=== PATIENT | female | born 1935 | race American Indian/Alaskan Native ===

== ENCOUNTER 2018-12-31 09:27 | Inpatient (IN) | payer OTHER, BC ==
--- NOTE | 2018-12-31 09:38 | PDOC ---
History of Present Illness - General Chief Complaint: Pain, Acute Stated Complaint: EPIGASTRIC PAIN Time Seen by Provider: 12/31/18 09:31 History Source: Patient Exam Limitations: No Limitations - History of Present Illness Initial Comments: 12/31/18 09:39 Ms. Givens is an 83 yo F with a h/o HTN, HLD who presents to the ER via EMS due to epigastric pain Pt awoke in her usual state of health this morning She had an egg white omelette with mushrooms, onions and peppers (no oil or cheese) for breakfast at approximately 6 am (typically she has oatmeal) After eating, she noted epigastric pain In the past when she has had this, she would typically take Chamomile tea for her epigastric pain and it goes away Today, her symptoms have persisted which prompted her presentation to the ER Pt reports that her pain is sharp, no radiation to the arm/jaw/back, pain is 3/ 10, constant No diaphoresis or dizziness No nausea, vomiting, diarrhea, nml bm this morning She was supposed to go to the gym this morning (per her routine - elliptical work out + household personal assistant) She typically has no chest pain with exertion. She is followed by Dr Berman ( Cardiology) who was supposed to see her two weeks ago but appointment was cancelled. She denies prior SD. She denies prior history of ulcer, no prior upper endoscopy PMH: HTN, HLD PSH: Parathyroid adenoma removal, Breast biopsy Meds: please see MAR ALL: NKDA Social: Denies tobacco use (was exposed to 2nd hand smoke), denies etoh use, denies drug use FH: non contributory ROS: GENERAL/CONSTITUTIONAL: No: fever, chills, weakness, loss of appetite. HEAD, EYES, EARS, NOSE AND THROAT: No: change in vision, ear pain, discharge, sore throat, throat swelling. CARDIOVASCULAR: Yes: epigastric pain No: chest pain, lightheadedness, palpitations, syncope RESPIRATORY: No: cough, shortness of breath, wheezing GASTROINTESTINAL: Yes: epigastric pain No: nausea, vomiting, diarrhea, abdominal cramping GENITOURINARY: No: dysuria, hematuria, frequency, urgency MUSCULOSKELETAL: No: back pain, neck pain SKIN: No: rash or easy bruising. NEUROLOGIC: No: headache, vertigo, paresthesias, weakness ENDOCRINE: No: unexplained weight gain or loss HEMATOLOGIC/LYMPHATIC: No: anemia, easy bleeding PE: GENERAL: The patient is in no acute distress. HEAD: Normal EYES: PERRLA, EOMI, sclera anicteric, conjunctiva clear. ENT: Ears normal, nares patent, oropharynx clear without exudates. Moist mucous membranes. NECK: Normal range of motion, supple without JVD LUNGS: Breath sounds equal, clear to auscultation bilaterally. No wheezes, and no crackles. HEART:Regular rate and rhythm, normal S1 and S2 without murmur, rub or gallop. ABDOMEN: Soft, nontender, normoactive bowel sounds. Absolutely no guarding, no rebound. EXTREMITIES: Normal range of motion, no edema. NEUROLOGICAL: Cranial nerves II through XII grossly intact. Normal speech. No focal neurological deficits. MUSCULOSKELETAL: Back non-tender to palpation, no CVA tenderness SKIN: Warm, Dry, normal turgor, no rashes or lesions noted. 12/31/18 09:46 12/31/18 09:54 01/02/19 23:36 Past History - Past Medical History Allergies/Adverse Reactions: Allergies Allergy/AdvReac Type Severity Reaction Status Date / Time No Known Drug Allergies Allergy Verified 12/31/18 10:11 HAY FEVER Allergy Mild Uncoded 12/31/18 10:10 Home Medications: Ambulatory Orders Rosuvastatin [Crestor] 10 mg PO HS 07/30/11 Aspirin [ASA -] 81 mg PO ASDIR 11/24/14 Enalapril Maleate [Vasotec -] 20 mg PO DAILY 11/24/14 Brimonidine Tartrate/Timolol [Combigan 0.2%-0.5% Eye Drops] 1 drop OP OS BID bottle 07/05/16 Metoprolol Succinate [Toprol Xl] 100 mg PO HS 05/22/17 Amlodipine Besylate [Norvasc -] 2.5 mg PO DAILY 12/31/18 Hydrochlorothiazide [Hctz -] 12.5 mg PO DAILY 12/31/18 COPD: No HTN: Yes Hypercholesterolemia: Yes - Immunization History Td Vaccination: Yes (12/04/2010) - Suicide/Smoking/Psychosocial Hx Smoking Status: No Smoking History: Never smoked Number of Cigarettes Smoked Daily: 0 Hx Alcohol Use: No Drug/Substance Use Hx: No Substance Use Type: None ED Treatment Course - LABORATORY CBC & Chemistry Diagram: 01/01/19 05:35 01/01/19 05:35 Medical Decision Making - Medical Decision Making 12/31/18 09:53 EKG - NSR rate of 75 LAD, no st elevation or depression, no t wave inversions 12/31/18 10:01 Pt is concerned about ACS DD includes ACS, Gastritis/Dyspepsia, Biliary Colic, Pancreatits, Will do: Labs EKG CXR Re Assess 12/31/18 11:02 Laboratory Tests 12/31/18 12/31/18 12/31/18 09:48 09:48 09:48 WBC 9.3 Hgb 14.5 Hct 42.9 Plt Count 253 BUN 11.0 Creatinine 0.6 Creatine Kinase 57 Troponin I < 0.03 Pt states after Maalox and Zantac, she continues to have dyspepsia She is burping during examination 12/31/18 11:22 Pt had a vasovagal episode HR dropped to 20s Pt passed out Pt responded to verbal stimulation Then vomited Pt feels better HR now 60-70s 12/31/18 11:[address] Berman Agrees with observation 12/31/18 18:05 Pt had another episode of vomiting and bradycardia No alterations in mental status EKG: NSR rate of 64 bpm, LAD, no st elevation or depression, t wave inversion v2 , biphasic t waves v4-v6 Repeat trop pending *DC/Admit/Observation/Transfer Diagnosis at time of Disposition: Epigastric pain, Vasovagal episode - Discharge Dispostion Condition at time of disposition: Stable Decision to Admit order: Yes - Referrals - Patient Instructions - Post Discharge Activity
[2018-12-31] MEDS ORDERED: RANITIDINE HCL 150 MG TABLET (FP) PO ONE (09:45)
[2018-12-31] MEDS ORDERED: MAG HYDROX/AL HYDROX/SIMETH 30 ML UNIT-DOSE CUP PO ONE (10:06)
[2018-12-31 10:27] LABS: BASO % 0.3 % (0-2.0); EOS % 1.2 % (0-4.5); HEMATOCRIT 42.9 % (32.4-45.2); HEMOGLOBIN 14.5 GM/dl (10.7-15.3); LYMPH % 16.2 % (8-40); MCH 30.7 pg (25.7-33.7); MCHC 33.9 g/dl (32.0-36.0); MEAN CELL VOLUME 90.5 fl (80-96); MEAN PLT VOLUME 9.5 fl (7.5-11.1); MONO % 3.3 % (3.8-10.2); PLATELET COUNT 253 K/MM3 (134-434); RBC 4.74 M/mm3 (3.60-5.2); RDW 13.1 % (11.6-15.6); WHITE BLOOD COUNT 9.3 K/mm3 (4.0-10.8)
[2018-12-31 10:32] LABS: CALCIUM 9.8 mg/dl (8.5-10); CREATININE 0.6 mg/dl (0.55-1.3); POTASSIUM 3.4 mmol/L (3.5-5.1); TOT PROT 7.4 g/dl (6.4-8.2)
--- NOTE | 2018-12-31 10:56 | EKG ---
Test Reason : Blood Pressure : / mmHG Vent. Rate : 075 BPM Atrial Rate : 075 BPM P-R Int : 170 ms QRS Dur : 082 ms QT Int : 398 ms P-R-T Axes : 068 -35 042 degrees QTc Int : 444 ms NORMAL SINUS RHYTHM LEFT AXIS DEVIATION ABNORMAL ECG NO PREVIOUS ECGS AVAILABLE Confirmed by KAMERON WIGGINS, DIEGO ([id number]) on 12/31/2018 10:55:55 AM Referred By: RAFAEL SANDHU Confirmed By:DIEGO MELO MD
--- NOTE | 2018-12-31 19:00 | HP ---
CHIEF COMPLAINT: Epigastric pain PCP: Dr. Peraza Cardiology: Dr. 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 Patient was in her usual state of health this morning. She made herself an egg white omelette for breaksfast. After eating, she felt a sharp pain in the epigastric area. The pain did not radiate. She has episodes of indigestion at times and self-treats with chamomile tea. She drank the tea but the pain did not improve so she came to the ED. Patient denies palpitations, SOB, PHELPS, decreased exercise tolerance, diaphoresis, lower extremity edema. She exercises regularly in a gym with a personal financial counselor. She denies any history of ulcers. Has never had an upper endocscopy. Denies fever, sweats, chills. Denies nausea, vomiting, diarrhea prior to arrival in ED. Denies blood in urine or stool. ED course (1) While in the ED, patient was observed to richard down to the 20s. The nurse went to the bedside, the patient was staring, unresponsive for a second or two, then came to. She then vomited a large amount of food, the omelette she had for breakfast. Several hours later, the patient was given some marcelino oren. 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; ; lives alone; independent ADLs Alcohol: no Drugs: no Family History: mother 92 colon cancer, HTN; father 69 brain hemorrhage, HTN; brother 68 dilated cardiomyopathy; brother 68 heart failure, cardiac arrest; sister 64 pancreatic cancer; sister alive with breast cancer Allergies No Known Drug Allergies Allergy (Verified 12/31/18 10:11) HAY FEVER Allergy (Mild, Uncoded 12/31/18 10:10) HOME MEDICATIONS: Home Medications Medication Instructions Recorded Rosuvastatin [Crestor] 10 mg PO HS 07/30/11 Aspirin [ASA -] 81 mg PO ASDIR 11/24/14 Enalapril Maleate [Vasotec -] 20 mg PO DAILY 11/24/14 Brimonidine Tartrate/Timolol 1 drop OP OS BID bottle 07/05/16 [Combigan 0.2%-0.5% Eye Drops] Metoprolol Succinate [Toprol Xl] 100 mg PO HS 05/22/17 Amlodipine Besylate [Norvasc -] 2.5 mg PO DAILY 12/31/18 Hydrochlorothiazide [Hctz -] 12.5 mg PO DAILY 12/31/18 REVIEW OF SYSTEMS CONSTITUTIONAL: Absent: fever, chills, diaphoresis, generalized weakness, malaise, loss of appetite, weight change HEENT: Absent: rhinorrhea, nasal congestion, throat pain, throat swelling, difficulty swallowing, mouth swelling, ear pain, eye pain, visual changes CARDIOVASCULAR: +syncope Absent: chest pain, syncope, palpitations, irregular heart rate, lightheadedness , peripheral edema RESPIRATORY: Absent: cough, shortness of breath, dyspnea with exertion, orthopnea, wheezing, stridor, hemoptysis GASTROINTESTINAL: +epigastric pain, vomiting Absent: abdominal distension, diarrhea, constipation, melena, hematochezia GENITOURINARY: Absent: dysuria, frequency, urgency, hesitancy, hematuria, flank pain, genital pain MUSCULOSKELETAL: Absent: myalgia, arthralgia, joint swelling, back pain, neck pain SKIN: Absent: rash, itching, pallor HEMATOLOGIC/IMMUNOLOGIC: Absent: easy bleeding, easy bruising, lymphadenopathy, frequent infections ENDOCRINE: Absent: unexplained weight gain, unexplained weight loss, heat intolerance, cold intolerance NEUROLOGIC: Absent: headache, focal weakness or paresthesias, dizziness, unsteady gait, seizure, mental status changes, bladder or bowel incontinence PSYCHIATRIC: Absent: anxiety, depression, suicidal or homicidal ideation, hallucinations. PHYSICAL EXAMINATION Vital Signs - 24 hr 12/31/18 12/31/18 12/31/18 09:28 10:14 11:11 Temperature 97.5 F L Pulse Rate 81 Pulse Rate [ 80 36 L Apical] Respiratory 17 18 Rate Blood Pressure 175/94 H Blood Pressure 111/80 149/73 [Right Arm] O2 Sat by Pulse 99 99 Oximetry (%) 12/31/18 12/31/18 12/31/18 11:25 12:52 13:58 Temperature Pulse Rate Pulse Rate [ 63 64 75 Apical] Respiratory 18 18 Rate Blood Pressure Blood Pressure 141/70 154/60 144/69 [Right Arm] O2 Sat by Pulse 100 99 Oximetry (%) 12/31/18 12/31/18 12/31/18 17:10 17:25 17:38 Temperature 98.7 F Pulse Rate 76 Pulse Rate [ 69 75 Apical] Respiratory 16 18 18 Rate Blood Pressure 122/71 Blood Pressure 144/83 136/70 [Right Arm] O2 Sat by Pulse 99 100 Oximetry (%) GENERAL: Awake, alert, and fully oriented, in no acute distress. HEAD: Normal with no signs of trauma. EYES: Pupils equal, round and reactive to light, extraocular movements intact, sclera anicteric, conjunctiva clear. No lid lag. EARS, NOSE, THROAT: Ears normal, nares patent, oropharynx clear without exudates. Moist mucous membranes. NECK: Normal range of motion, supple without lymphadenopathy, JVD, or masses. LUNGS: Breath sounds equal, clear to auscultation bilaterally. No wheezeswithout murmur, rub or gallop. ABDOMEN: Soft, nontender, not distended, hyperactive bowel sounds, no guarding, no rebound tenderness MUSCULOSKELETAL: Normal range of motion at all joints. No bony deformities or tenderness. No CVA tenderness. UPPER EXTREMITIES: 2+ pulses, warm, well-perfused. No cyanosis. No clubbing. No peripheral edema. LOWER EXTREMITIES: 2+ pulses, warm, well-perfused. No calf tenderness. No peripheral edema. NEUROLOGICAL: Cranial nerves II-XII intact. Normal speech. Laboratory Results - last 24 hr 12/31/18 12/31/18 12/31/18 09:48 09:48 09:48 WBC 9.3 RBC 4.74 Hgb 14.5 Hct 42.9 MCV 90.5 MCH 30.7 MCHC 33.9 RDW 13.1 Plt Count 253 MPV 9.5 Absolute Neuts (auto) 7.3 Neutrophils % 79.0 Lymphocytes % 16.2 Monocytes % 3.3 L Eosinophils % 1.2 Basophils % 0.3 Sodium 139 Potassium 3.4 L Chloride 99 Carbon Dioxide 32 Anion Gap 8 BUN 11.0 Creatinine 0.6 Est GFR (CKD-EPI)AfAm 98.38 Est GFR (CKD-EPI)NonAf 84.88 Random Glucose 103 Calcium 9.8 Total Bilirubin 1.0 AST 34 ALT 23 Alkaline Phosphatase 59 Creatine Kinase 57 Troponin I < 0.03 Total Protein 7.4 Albumin 4.0 Lipase 12/31/18 12/31/18 12/31/18 09:48 17:34 17:34 WBC RBC Hgb Hct MCV MCH MCHC RDW Plt Count MPV Absolute Neuts (auto) Neutrophils % Lymphocytes % Monocytes % Eosinophils % Basophils % Sodium Potassium Chloride Carbon Dioxide Anion Gap BUN Creatinine Est GFR (CKD-EPI)AfAm Est GFR (CKD-EPI)NonAf Random Glucose Calcium Total Bilirubin AST ALT Alkaline Phosphatase Creatine Kinase 43 Troponin I < 0.03 Total Protein Albumin Lipase 171 Imaging US abdomen: mild fatty infiltration of the liver v. 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 ED course was remarkable for two episodes of bradycardia followed by vomiting. During one of these episodes patient syncopized for several seconds. Epigastric pain Vomiting --has had "indigestion" in the past which she self-treats with chamomille tea ; had colonoscopy with Dr. Hanna ~7 years ago, never had EGD --no fever, no leukocytosis, has not felt ill, low suspicion for infectious etiology --no hematemesis; h/h stable --keep NPO for now --IV fluids --protonix IV --lipase pending --GI consult; will defer futher imaging until GI weighs in Symptomatic bradycardia --two episodes of bradycardia while in the ED, one associated with brief LOC , both followed by vomiting; according to ED staff no drop in BP --continuous telemetry monitoring --serial ECGs --troponins neg x 2, third pending --replete K to >4; check Mg, replete if necessary >2 --transfer to [facility] telemetry unit --consult placed for 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 Full [facility]. Visit type - Emergency Visit Emergency Visit: Yes Care time: The patient presented to the Emergency Department on the above date and was hospitalized for further evaluation of their emergent condition. - New Patient This patient is new to me today: Yes Date on this admission: 12/31/18 - Critical Care Critical Care patient: No
[2018-12-31] MEDS ORDERED: PATIENT'S OWN MEDICATION (NON-FORMULARY) (Brimonidine Tartrate/Timolol [Combigan 0.2%-0.5% OP SCH (20:15)
[2018-12-31] MEDS ORDERED: DEXTROSE 5%-NORMAL SALINE 1,000 ML IV SCH (20:15)
[2018-12-31 21:41] VITALS: BMI 19.6
--- NOTE | 2018-12-31 22:56 | HOSP ---
Subjective - Review of Symptoms Events since last encounter: 83 year-old female, with a PMH of HTN and HLD arrived at [facility] ED for evaluation of epigastric pain. After eating breakfast, felt a sharp pain in the epigastric area, pain did not radiate. While in the ED, patient was observed to richard down to the 20s. Patient noted by RN in ED staring, unresponsive for 1-2 second. General: No: Chills, Night Sweats, Fatigue, Malaise, Appetite, Other HEENT: No: Head Aches, Visual Changes, Eye Pain, Ear Pain, Dysphasia, Sinus Congestion, Post Nasal Drip, Sore Throat, Other Pulmonary: No: Dyspnea, Cough, Pleuritic Chest Pain, Other Cardiovascular: No: Chest Pain, Palpitations, Orthopnea, Paroxysmal Noc. Dyspnea , Edema, Light Headedness, Other Gastrointestinal: No: Nausea, NOSYM, Vomiting, Abdominal Pain, Diarrhea, Constipation, Melena, Hematochezia, Other Genitourinary: No: Dysuria, NOSYM, Frequency, Incontinence, Hematuria, Retention , Other Musculoskeletal: No: No Symptoms, Back Pain, Crepitus, Decreased ROM, Extremity Pain, Joint Pain, Joint Swelling, Muscle Pain, Muscle Cramps, Muscle Weakness, Other Neurological: No: Weakness, Numbness, Incoordination, Change in speech, Confusion, Seizures, Other Physical Examination Vital Signs: Vital Signs Temperature 98.0 F 12/31/18 20:20 Pulse Rate 72 12/31/18 20:20 Respiratory Rate 20 12/31/18 20:20 Blood Pressure 132/73 12/31/18 20:20 O2 Sat by Pulse Oximetry (%) 100 12/31/18 19:19 Constitutional: Yes: No Distress, Calm Eyes: Yes: Conjunctiva Clear, EOM Intact HENT: Yes: Atraumatic, Normocephalic Neck: Yes: Supple, Trachea Midline Cardiovascular: Yes: Regular Rate and Rhythm Respiratory: Yes: Regular, CTA Bilaterally Gastrointestinal: Yes: Normal Bowel Sounds, Soft Labs: CBC, BMP 12/31/18 09:48 12/31/18 09:48 Hospitalist Encounter Assessment: 83 year-old female, with a PMH of HTN and HLD who presented to the ED with epigastric pain. At ED two episodes of bradycardia followed by vomiting. During one of these episodes patient syncopized for several seconds. Patient transferred to [facility] telemetry for further monitoring. Epigastric pain Vomiting -- NPO for now --IV fluids --protonix IV --GI consult Symptomatic bradycardia --two episodes of bradycardia while in the ED, one associated with brief LOC , both followed by vomiting --continuous telemetry monitoring --troponins neg x 2, follow third --replete K to >4 -- monitor lytes --consult placed for Dr. Berman airbrush artist photography
[2018-12-31] MEDS: POTASSIUM CHLORIDE TABS 20 MEQ TABLET.ER (FP) PO SCH (23:48)
[2018-12-31] MEDS: ROSUVASTATIN CA 10 MG TABLET (FP) PO SCH (23:48)
[2018-12-31] MEDS: TIMOLOL 0.5% OPHTHALMIC SOL 5 ML BOTTLE OS SCH (23:49)
[2018-12-31] MEDS: DORZOLAMIDE 2% HCL OPHTHALMIC SOLUTION 10 ML BOTTLE OS SCH (23:49)
[2019-01-01] MEDS: POTASSIUM CHLORIDE TABS 20 MEQ TABLET.ER (FP) PO SCH (06:26)
[2019-01-01 06:54] LABS: BASO % 0.6 % (0-2.0); EOS % 1.1 % (0-4.5); HEMATOCRIT 36.9 % (32.4-45.2); HEMOGLOBIN 12.5 GM/dL (10.7-15.3); LYMPH % 20.7 % (8-40); MCH 30.7 pg (25.7-33.7); MCHC 33.8 g/dl (32.0-36.0); MEAN CELL VOLUME 90.8 fl (80-96); MEAN PLT VOLUME 9.1 fl (7.5-11.1); MONO % 6.4 % (3.8-10.2); NEUT % 71.2 % (42.8-82.8); PLATELET COUNT 231 K/MM3 (134-434); RBC 4.07 M/mm3 (3.60-5.2); RDW 13.9 % (11.6-15.6); WHITE BLOOD COUNT 7.5 K/mm3 (4.0-10.0)
[2019-01-01 07:00] LABS: INR 0.95 (0.83-1.09); PROTHROMBIN TIME (PATIENT) 11.2 SEC (9.7-13.0)
[2019-01-01 07:39] LABS: ALBUMIN 3.1 g/dl (3.4-5.0); BLOOD UREA NITROGEN 10.4 mg/dL (7-18); CALCIUM 9.1 mg/dL (8.5-10.1); CREATININE 0.6 mg/dL (0.55-1.3); MAGNESIUM 2.4 mg/dL (1.8-2.4); POTASSIUM 4.2 mmol/L (3.5-5.1); TOT PROT 6.4 g/dl (6.4-8.2)
--- NOTE | 2019-01-01 08:03 | PN ---
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 Patient was in her usual state of health After eating, she felt a sharp pain in the epigastric area. The pain did not radiate. She has episodes of indigestion at times and self-treats with chamomile tea. She drank the tea but the pain did not improve so she came to the ED. Patient denies palpitations, SOB , PHELPS, decreased exercise tolerance, diaphoresis, lower extremity edema. She exercises regularly. She denies any history of ulcers. Has never had an upper endocscopy-lower was approx 10 years ago. In the ED she vomited and had syncopal episode with collapse and was noted to have HR in 20s - Current Medication List Current Medications: Active Medications Aspirin (Asa -) 81 mg PO MoFr@1000 [facility] Dorzolamide HCl (Trusopt 2%) 1 drop OS BID [facility] Last Admin: 12/31/18 23:49 Dose: 1 drop Enalapril Maleate (Vasotec -) 20 mg PO DAILY [facility] Hydrochlorothiazide (Hctz -) 12.5 mg PO DAILY [facility] Dextrose/Sodium Chloride (D5-Ns -) 1,000 mls @ 75 mls/hr IV ASDIR [facility] Last Admin: 12/31/18 23:51 Dose: 75 mls/hr Pantoprazole Sodium (Protonix Iv) 40 mg IVPUSH DAILY [facility] Rosuvastatin Calcium (Crestor -) 10 mg PO HS [facility] Last Admin: 12/31/18 23:48 Dose: 10 mg Timolol Maleate (Timoptic 0.5%) 1 drop OS BID [facility] Last Admin: 12/31/18 23:49 Dose: 1 drop - Objective Vital Signs: Vital Signs Temperature 97.9 F 01/01/19 02:00 Pulse Rate 75 01/01/19 06:00 Respiratory Rate 20 01/01/19 06:00 Blood Pressure 124/66 01/01/19 06:00 O2 Sat by Pulse Oximetry (%) 100 12/31/18 19:19 Constitutional: Yes: No Distress, Calm, Thin Eyes: Yes: WNL, Conjunctiva Clear, EOM Intact HENT: Yes: WNL, Atraumatic, Normocephalic Neck: Yes: WNL, Supple, Trachea Midline Cardiovascular: Yes: WNL, Regular Rate and Rhythm Respiratory: Yes: WNL, Regular, CTA Bilaterally Gastrointestinal: Yes: WNL, Normal Bowel Sounds, Soft ...Rectal Exam: Yes: Deferred Genitourinary: Yes: WNL Breast(s): Yes: WNL Musculoskeletal: Yes: WNL Extremities: Yes: WNL Edema: No Peripheral Pulses WNL: Yes Integumentary: Yes: WNL Neurological: Yes: WNL, Alert, Oriented ...Motor Strength: WNL Psychiatric: Yes: WNL, Alert, Oriented Labs: CBC, BMP 01/01/19 05:35 01/01/19 05:35 INR, PTT INR 0.95 (0.83-1.09) 01/01/19 05:35 - ....Imaging Ultrasound: Report Reviewed (Mild fatty infiltartion of liver vs hepatocellular dz) Other: Pending (TTE) Problem List - Problems (1) Epigastric pain Assessment/Plan: Epigastric pain Vomiting -- NPO for now --IV fluids --protonix IV --GI consult Code(s): R10.13 - EPIGASTRIC PAIN (2) Vasovagal episode Assessment/Plan: Symptomatic bradycardia --two episodes of bradycardia while in the ED, one associated with brief LOC , both followed by vomiting --continuous telemetry monitoring --troponins neg x 2, follow third --replete K to >4 -- monitor lytes --consult placed for Dr. Berman pharmacy scheduler Code(s): R55 - SYNCOPE AND COLLAPSE (3) HLD (hyperlipidemia) Assessment/Plan: c/w statin when tolerating PO Code(s): E78.5 - HYPERLIPIDEMIA, UNSPECIFIED (4) H/O parathyroidectomy Assessment/Plan: benign Code(s): Z90.09 - ACQUIRED ABSENCE OF OTHER PART OF HEAD AND NECK (5) Prophylactic measure Assessment/Plan: FEN clear liquids until GI sees c/w PPI monitor electrolytes DVT ambulatory Dispo maintain as in patient full code discharge planning Code(s): Z29.9 - ENCOUNTER FOR PROPHYLACTIC MEASURES, UNSPECIFIED (6) Hypertension Assessment/Plan: normotensive c/w hctz, vasotec Code(s): I10 - ESSENTIAL (PRIMARY) HYPERTENSION Qualifiers: Hypertension type: essential hypertension Qualified Code(s): I10 - Essential (primary) hypertension (7) Fatty liver Assessment/Plan: Mild fatty infiltration of liver vs hepatocellular dz will send hepatatis serologies GI consult requested Code(s): K76.0 - FATTY (CHANGE OF) LIVER, NOT ELSEWHERE CLASSIFIED Visit type - Emergency Visit Emergency Visit: Yes ED Registration Date: 12/31/18 Care time: The patient presented to the Emergency Department on the above date and was hospitalized for further evaluation of their emergent condition. - New Patient This patient is new to me today: Yes Date on this admission: 01/01/19 - Critical Care Critical Care patient: No - Discharge Referral Referred to [facility] No
[2019-01-01] MEDS ORDERED: PT OWN MED DRAWER 7, Y5N ONE (08:40)
[2019-01-01] MEDS: ENALAPRIL MALEATE 10 MG TABLET (FP) PO SCH (09:14)
[2019-01-01] MEDS: HYDROCHLOROTHIAZIDE 12.5 MG CAPSULE (FP) PO SCH (09:15)
[2019-01-01] MEDS: TIMOLOL 0.5% OPHTHALMIC SOL 5 ML BOTTLE OS SCH ×2 (09:17→21:12)
[2019-01-01] MEDS: DORZOLAMIDE 2% HCL OPHTHALMIC SOLUTION 10 ML BOTTLE OS SCH ×2 (09:18→21:12)
[2019-01-01] MEDS ORDERED: PANTOPRAZOLE SODIUM 40 MG VIAL IVPUSH SCH ×2 (10:00→14:15)
--- NOTE | 2019-01-01 10:33 | EKG ---
Test Reason : Blood Pressure : / mmHG Vent. Rate : 064 BPM Atrial Rate : 064 BPM P-R Int : 158 ms QRS Dur : 086 ms QT Int : 442 ms P-R-T Axes : 059 -30 036 degrees QTc Int : 455 ms NORMAL SINUS RHYTHM LEFT AXIS DEVIATION ABNORMAL ECG WHEN COMPARED WITH ECG OF 31-DEC-2018 09:52, NO SIGNIFICANT CHANGE WAS FOUND Confirmed by JORDANA CASTANEDA MD ([id number]) on 01/01/2019 10:33:34 AM Referred By: MD SANDHU Confirmed By:JORDANA CASTANEDA MD
--- NOTE | 2019-01-01 11:49 | ECHO ---
Name: DENNYS SPEAR SOON Exam:Adult Echocardiogram Study Date: 01/01/2019 09:42 AM Age: 83 yrs Reason For Study: Syncopal Episode Height: 61 in Weight: 104 lb BSA: 1.4 m2 MMode/2D Measurements & Calculations IVSd: 0.94 cm Ao root diam: 2.9 cm LVIDd: 3.9 cm LA dimension: 3.1 cm LVIDs: 3.1 cm ACS: 1.9 cm LVPWd: 0.96 cm EDV(Teich): 66.2 ml LVOT diam: 1.9 cm ESV(Teich): 36.9 ml RV S Lance: 15.8 cm/sec Doppler Measurements & Calculations MV E max lance: 67.4 cm/sec MV A max lance: 100.9 cm/sec MV dec slope: 328.8 cm/sec2 MV E/A: 0.67 Ao V2 max: 131.9 cm/sec LV V1 max P.0 mmHg Ao max P.0 mmHg LV V1 mean P.8 mmHg Ao V2 mean: 101.6 cm/sec LV V1 max: 87.3 cm/sec Ao mean P.5 mmHg LV V1 mean: 63.1 cm/sec Ao V2 VTI: 32.2 cm LV V1 VTI: 20.4 cm JOSEPH(I,D): 1.7 cm2 JOESPH(V,D): 1.8 cm2 SV(LVOT): 56.0 ml TR max lance: 227.1 cm/sec TR max P.7 mmHg Med Peak E' Lance: 7.4 cm/sec Med E/e': 9.1 Lat Peak E' Lance: 9.9 cm/sec Lat E/e': 6.8 Procedure A complete two-dimensional transthoracic echocardiogram was performed (2D, M-mode, Doppler and color flow Doppler). Left Ventricle The left ventricular size, thickness and function are normal. The left ventricular ejection fraction is normal. Ejection Fraction = 55-60%. No regional wall motion abnormalities noted. Right Ventricle The right ventricle is normal in size and function. Atria Normal left and right atrial size and function. Mitral Valve There is trace mitral regurgitation. Tricuspid Valve There is moderate tricuspid regurgitation. Right ventricular systolic pressure is normal. Aortic Valve No hemodynamically significant valvular aortic stenosis. Trace aortic regurgitation. Pulmonic Valve There is no pulmonic valvular regurgitation. Great Vessels The aortic root is normal size. Pericardium/Pleura There is no pericardial effusion. Interpretation Summary The left ventricular size, thickness and function are normal The right ventricle is normal in size and function. There is trace mitral regurgitation. There is moderate tricuspid regurgitation. Trace aortic regurgitation. MD Gerardo Galvan 01/01/2019 11:48 AM
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
--- NOTE | 2019-01-01 18:45 | CON.GI ---
Consult Consult Specialty:: GI Referred by:: Hospitalist Service Reason for Consultation:: Vomiting - History of Present Illness Chief Complaint: Vomiting History of Present Illness: 83F who initially presented to [facility] after she called 911 after experiencing upper abdominal pain after eating breakfast because she was afraid she was having a heart attack (not her usual breakfast, made an eggwhite omlet). She also described having a great deal of stress over the last few days as she was supposed to attend an old friend's wake yesterday. She was taken to the ER, vomited there and syncope was described. She then vomited again later on during her ER stay. She became bradycardic with both vomiting episodes. A decision was made to transfer to [facility] for further care. she denies associated fevers, chills, sick contacts with similar complaints, rectal bleeding, melena, frequent NSAID use, diarrhea, dysphagia, odynophagia or early satiety. Abdominal US revealed fatty liver without gallstones or dilated biliary tract. When I came to evaluate her, she ws eating her dinner without complaints. She denies abdominal pain. She denies chronic GI complaints. She had an unrevealing colonoscopy about 10 years ago and a more recent negative stool cologuard. She says for occasional indigestion she drinks chamomile tea. Her mother had colon cancer at age 92. 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[employer] Place of : Other ([place]) History of Recent Travel: No Home Medications - Allergies Allergies/Adverse Reactions: Allergies Allergy/AdvReac Type Severity Reaction Status Date / Time No Known Drug Allergies Allergy Verified 12/31/18 10:11 HAY FEVER Allergy Mild Uncoded 12/31/18 10:10 - Home Medications Home Medications: Ambulatory Orders Rosuvastatin [Crestor] 10 mg PO HS 07/30/11 Aspirin [ASA -] 81 mg PO ASDIR 11/24/14 Enalapril Maleate [Vasotec -] 20 mg PO DAILY 11/24/14 Brimonidine Tartrate/Timolol [Combigan 0.2%-0.5% Eye Drops] 1 drop OP OS BID bottle 07/05/16 Metoprolol Succinate [Toprol Xl] 100 mg PO HS 05/22/17 Amlodipine Besylate [Norvasc -] 2.5 mg PO DAILY 12/31/18 Hydrochlorothiazide [Hctz -] 12.5 mg PO DAILY 12/31/18 Family Disease History - Family Disease History Family Disease History: Other: Father (: Cerebral hemorrhage in 60's), Mother (: 92: Colon cancer), Brother (1 : 68: Cardiomyopathy), Sister (3 , 1 from pancreatic cancer age 63), Son (1, alive: cardiomyopathy), Daughter (1: committed suicide) Review of Systems - Review of Systems Constitutional: denies: Chills, Loss of Appetite Cardiovascular: denies: Chest Pain Respiratory: denies: SOB Gastrointestinal: reports: Abdominal Pain (resolved), Vomiting (resolved). denies: Constipation, Diarrhea, Melena, Rectal Bleeding Physical Exam-GI Vital Signs: Vital Signs Temperature 98.4 F 01/01/19 17:00 Pulse Rate 84 01/01/19 17:00 Respiratory Rate 20 01/01/19 17:00 Blood Pressure 140/81 01/01/19 17:00 O2 Sat by Pulse Oximetry (%) 100 01/01/19 11:00 Constitutional: Yes: Calm Eyes: No: Sclera Icterus Cardiovascular: Yes: Regular Rate and Rhythm. No: Murmur Respiratory: Yes: CTA Bilaterally Gastrointestinal Inspection: No: Distention ...Auscultate: Yes: Normoactive Bowel Sounds ...Palpate: Yes: Soft. No: Hepatomegaly, Splenomegaly, Tenderness ...Percussion: No: Tympanitic Edema: No (No LE edema) Neurological: Yes: Alert, Oriented Labs: CBC, BMP 01/01/19 05:35 01/01/19 05:35 INR, PTT INR 0.95 (0.83-1.09) 01/01/19 05:35 Problem List - Problems (1) Vomiting Assessment/Plan: with suspected vasovagal episode. Dr. Givens is currently asymptomatic and tolerating dinner without further episodes of epigastric pain, nausea or vomiting. I question if her episodes were precipitated by a self limited gastroenteritis Ordered UGIS for AM Continue Protonix 20mg once daily for now Code(s): R11.10 - VOMITING, UNSPECIFIED Qualifiers: Vomiting type: unspecified Vomiting Intractability: non-intractable Nausea presence: with nausea Qualified Code(s): R11.2 - Nausea with vomiting, unspecified
[2019-01-01] MEDS: ROSUVASTATIN CA 10 MG TABLET (FP) PO SCH (21:13)
--- NOTE | 2019-01-02 07:55 | PN ---
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 Patient was in her usual state of health After eating, she felt a sharp pain in the epigastric area. The pain did not radiate. She has episodes of indigestion at times and self-treats with chamomile tea. She drank the tea but the pain did not improve so she came to the ED. Patient denies palpitations, SOB , PHELPS, decreased exercise tolerance, diaphoresis, lower extremity edema. She exercises regularly. She denies any history of ulcers. Has never had an upper endocscopy-lower was approx 10 years ago. In the ED she vomited and had syncopal episode with collapse and was noted to have HR in 20s - Current Medication List Current Medications: Active Medications Aspirin (Asa -) 81 mg PO MoFr@1000 [facility] Dorzolamide HCl (Trusopt 2%) 1 drop OS BID [facility] Last Admin: 01/01/19 21:12 Dose: 1 drop Enalapril Maleate (Vasotec -) 20 mg PO DAILY [facility] Last Admin: 01/01/19 09:14 Dose: 20 mg Hydrochlorothiazide (Hctz -) 12.5 mg PO DAILY [facility] Last Admin: 01/01/19 09:15 Dose: 12.5 mg Metoprolol Tartrate (Lopressor -) 25 mg PO DAILY [facility] Pantoprazole Sodium (Protonix -) 20 mg PO DAILY [facility] Rosuvastatin Calcium (Crestor -) 10 mg PO HS [facility] Last Admin: 01/01/19 21:13 Dose: 10 mg Timolol Maleate (Timoptic 0.5%) 1 drop OS BID [facility] Last Admin: 01/01/19 21:12 Dose: 1 drop - Objective Vital Signs: Vital Signs Temperature 98.1 F 01/02/19 06:15 Pulse Rate 92 H 01/02/19 06:15 Respiratory Rate 20 01/02/19 06:15 Blood Pressure 153/84 01/02/19 06:15 O2 Sat by Pulse Oximetry (%) 98 01/02/19 03:00 Constitutional: Yes: No Distress, Calm, Thin Eyes: Yes: WNL, Conjunctiva Clear, EOM Intact HENT: Yes: WNL, Atraumatic, Normocephalic Neck: Yes: WNL, Supple, Trachea Midline Cardiovascular: Yes: WNL, Regular Rate and Rhythm Respiratory: Yes: WNL, Regular, CTA Bilaterally Gastrointestinal: Yes: WNL, Normal Bowel Sounds, Soft ...Rectal Exam: Yes: Deferred Genitourinary: Yes: WNL Breast(s): Yes: WNL Musculoskeletal: Yes: WNL Extremities: Yes: WNL Edema: No Peripheral Pulses WNL: Yes Peripheral Pulses: Left Radial: 2+, Right Radial: 2+, Left Doralis Pedis: 2+, Right Dorsalis Pedis: 2+, Left Femoral: 2+, Right Femoral: 2+ Integumentary: Yes: WNL Neurological: Yes: WNL, Alert, Oriented ...Motor Strength: WNL Psychiatric: Yes: WNL, Alert, Oriented Labs: CBC, BMP 01/01/19 05:35 01/01/19 05:35 INR, PTT INR 0.95 (0.83-1.09) 01/01/19 05:35 Problem List - Problems (1) Epigastric pain Assessment/Plan: no further pain UGIS pending GI consultation appreciated Code(s): R10.13 - EPIGASTRIC PAIN (2) Vasovagal episode Assessment/Plan: Symptomatic bradycardia -two episodes of bradycardia while in the ED, no further episodes continuous telemetry monitoring holter monitoring in progress appreciate cardiology consultation Code(s): R55 - SYNCOPE AND COLLAPSE (3) HLD (hyperlipidemia) Assessment/Plan: c/w statin when tolerating PO Code(s): E78.5 - HYPERLIPIDEMIA, UNSPECIFIED (4) H/O parathyroidectomy Assessment/Plan: benign Code(s): Z90.09 - ACQUIRED ABSENCE OF OTHER PART OF HEAD AND NECK (5) Prophylactic measure Assessment/Plan: FEN change change diet to cardiac after UGIS c/w PPI monitor electrolytes DVT ambulatory Dispo maintain as in patient full code discharge planning Code(s): Z29.9 - ENCOUNTER FOR PROPHYLACTIC MEASURES, UNSPECIFIED (6) Hypertension Assessment/Plan: normotensive c/w hctz, vasotec Code(s): I10 - ESSENTIAL (PRIMARY) HYPERTENSION Qualifiers: Hypertension type: essential hypertension Qualified Code(s): I10 - Essential (primary) hypertension (7) Fatty liver Assessment/Plan: Mild fatty infiltration of liver vs hepatocellular dz hepatatis serologies pending GI consult appreciated Code(s): K76.0 - FATTY (CHANGE OF) LIVER, NOT ELSEWHERE CLASSIFIED Visit type - Emergency Visit Emergency Visit: Yes ED Registration Date: 12/31/18 Care time: The patient presented to the Emergency Department on the above date and was hospitalized for further evaluation of their emergent condition. - New Patient This patient is new to me today: No - Critical Care Critical Care patient: No - Discharge Referral Referred to [facility] No
[2019-01-02] MEDS: HYDROCHLOROTHIAZIDE 12.5 MG CAPSULE (FP) PO SCH (09:17)
[2019-01-02] MEDS: DORZOLAMIDE 2% HCL OPHTHALMIC SOLUTION 10 ML BOTTLE OS SCH ×2 (09:18→22:34)
[2019-01-02] MEDS: TIMOLOL 0.5% OPHTHALMIC SOL 5 ML BOTTLE OS SCH ×2 (09:19→22:32)
[2019-01-02] MEDS ORDERED: ASPIRIN 81 MG CHEWABLE TABLETS PO SCH (10:00)
[2019-01-02] MEDS ORDERED: METOPROLOL TARTRATE 25 MG TABLET (FP) PO SCH (10:00)
[2019-01-02] MEDS ORDERED: PANTOPRAZOLE 20 MG TABLET (FP) PO SCH (10:00)
--- NOTE | 2019-01-02 10:12 | PN ---
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 She had an episode of vomiting, and the staff noticed that she developed profound bradycardia, apparently heart rate in the 20s, and had transient loss of consciousness. Since her admission, she has had no further epigastric pain, nausea or vomiting. Patient is currently undergoing a Holter monitor. upper GI series f did not reveal a gastric or duodenal ulcer, no evidence of hiatus hernia or gastroesophageal reflux or esophageal stricture (please see upper GI series report) ALLERGIES: None to medication. Hay fever. Active Medications Aspirin (Asa -) 81 mg PO MoFr@1000 [facility] Last Admin: 01/02/19 09:17 Dose: 81 mg Dorzolamide HCl (Trusopt 2%) 1 drop OS BID [facility] Last Admin: 01/02/19 09:18 Dose: 1 drop Enalapril Maleate (Vasotec -) 20 mg PO DAILY [facility] Last Admin: 01/01/19 09:14 Dose: 20 mg Hydrochlorothiazide (Hctz -) 12.5 mg PO DAILY [facility] Last Admin: 01/02/19 09:17 Dose: 12.5 mg Metoprolol Tartrate (Lopressor -) 25 mg PO DAILY [facility] Last Admin: 01/02/19 09:17 Dose: 25 mg Pantoprazole Sodium (Protonix -) 20 mg PO DAILY [facility] Last Admin: 01/02/19 09:17 Dose: 20 mg Rosuvastatin Calcium (Crestor -) 10 mg PO HS [facility] Last Admin: 01/01/19 21:13 Dose: 10 mg Timolol Maleate (Timoptic 0.5%) 1 drop OS BID [facility] Last Admin: 01/02/19 09:19 Dose: 1 drop PHYSICAL EXAMINATION: General: 83-year-old, alert, coherent female who was in no acute distress. No pallor, cyanosis, clubbing, or jaundice. Last Vital Signs Temp Pulse Resp BP Pulse Ox 98.1 F 92 H 20 153/84 98 01/02/19 06:15 01/02/19 06:15 01/02/19 06:15 01/02/19 06:15 01/02/19 03:00 Neck: Supple. No jugular venous distention. Carotids were 2+. Upstrokes were normal. No bruits were heard, and no thyromegaly was present. There was a well-healed anterior surgical scar. Heart: PMI was in the fifth intercostal space. No heaves or thrills. S1 and S2 were normal. Non-ejection systolic click was heard along the left sternal border. There was no change with hand core blower operator, and there were no heart murmurs or gallops heard. Lungs: Clear on auscultation. Abdomen: Soft, nontender. No hepatosplenomegaly or palpable masses were felt. Bowel sounds were present. No bruits were head. Extremities: No calf tenderness or dependent edema. Pulses were equal. CBC, BMP 01/01/19 05:35 01/01/19 05:35 X-ray Chest Dated: December 31, 2018: Impression: No acute chest pathology. Aortic calcification with prominent knob. Right lung and hilar calcification. Correlation recommended. Abdominal ultrasound Dated: December 31, 2018: Impression: Mild fatty infiltration of the liver versus hepatocellular disease. Please correlate with liver enzymes. No gallstones identified. Echocardiogram Dated: January 01, 2019: Interpretation/summary: Left ventricular size, thickness, and function are normal. The right ventricle is normal in size and function. There is trace mitral regurgitation. There is moderate tricuspid regurgitation. Trace aortic regurgitation. IMPRESSION: 1. Substernal epigastric, sharp pain. Etiology: A. Secondary to acute esophageal spasm. B. Acute gastroesophageal reflux. 2. Nausea, vomiting precipitated by number 1. 3. Transient bradyarrhythmia associated with transient loss of consciousness is compatible with vasovagal syndrome. 4. Hypertension, hypertensive cardiovascular disease; currently normotensive. 5. History of hypercholesterolemia. 6. Glaucoma. 7. Bilateral deafness. RECOMMENDATIONS: 1. Holter monitorin progress. 2. Please note combination of Timolol and beta blockers may contribute to significant bradyarrhythmias. 3. Check blood pressure supine and standing. 4. Patient should be considered for an upper endoscopy. BELL FRANKS M.D.
[2019-01-02] MEDS ORDERED: PT OWN MED DRAWER 7, Y5N ONE (10:38)
[2019-01-02] MEDS: ENALAPRIL MALEATE 10 MG TABLET (FP) PO SCH (10:40)
--- NOTE | 2019-01-02 15:31 | PN.GI ---
GI Progress Note Subjective: No acute events Wearing a holter monitor UGIS unremarkable - Objective Vital Signs: Vital Signs Temperature 98.2 F 01/02/19 10:00 Pulse Rate 89 01/02/19 10:00 Respiratory Rate 20 01/02/19 10:00 Blood Pressure 152/82 01/02/19 10:00 O2 Sat by Pulse Oximetry (%) 98 01/02/19 03:00 Constitutional: Calm Eyes: No: Sclera Icterus Cardiovascular: Yes: Regular Rate and Rhythm Respiratory: Yes: CTA Bilaterally Gastrointestinal Inspection: No: Distention ...Auscultate: Yes: Normoactive Bowel Sounds ...Palpate: Yes: Soft. No: Hepatomegaly, Splenomegaly, Tenderness ...Percussion: No: Tympanitic Edema: No (No LE edema) Neurological: Yes: Alert Labs: CBC, BMP 01/01/19 05:35 01/01/19 05:35 INR, PTT INR 0.95 (0.83-1.09) 01/01/19 05:35 Problem List - Problems (1) Vomiting Assessment/Plan: No further GI complaints and unrevealing UGIS Completing cardiac work-up Advised outpatient follow-up. Dr. Givens has my office card to arrange follow-up Please recall as needed Code(s): R11.10 - VOMITING, UNSPECIFIED Qualifiers: Vomiting type: unspecified Vomiting Intractability: non-intractable Nausea presence: with nausea Qualified Code(s): R11.2 - Nausea with vomiting, unspecified
[2019-01-02 22:06] LABS: HEP B CORE AB, TOT Positive (Negative)
[2019-01-02] MEDS: ROSUVASTATIN CA 10 MG TABLET (FP) PO SCH (22:34)
--- NOTE | 2019-01-03 08:33 | DS ---
Physical Exam: SUBJECTIVE: Patient seen and examined OBJECTIVE: Vital Signs Period Temp Pulse Resp BP Sys/Henley Pulse Ox Last 24 Hr 97.2 F-98.2 F 71-89 14-20 118-152/61-89 95-95 PHYSICAL EXAM GENERAL: The patient is awake, alert, and fully oriented, in no acute distress. HEAD: Normal with no signs of trauma. EYES: PERRL, extraocular movements intact, sclera anicteric, conjunctiva clear. ENT: Ears normal, nares patent, oropharynx clear without exudates, moist mucous membranes. NECK: Trachea midline, full range of motion, supple. LUNGS: Breath sounds equal, clear to auscultation bilaterally, no wheezes, no crackles, no accessory muscle use. HEART: Regular rate and rhythm, S1, S2 without murmur, rub or gallop. ABDOMEN: Soft, nontender, nondistended, normoactive bowel sounds, no guarding, no rebound, no hepatosplenomegaly, no masses. EXTREMITIES: 2+ pulses, warm, well-perfused, no edema. NEUROLOGICAL: Cranial nerves II through XII grossly intact. Normal speech, gait not observed. PSYCH: Normal mood, normal affect. SKIN: Warm, dry, normal turgor, no rashes or lesions noted. LABS Laboratory Results - last 24 hr 01/01/19 12:40 Hep A IgM Ab Confirm Negative Hepatitis A Ab Total Positive H Hep Bs Antigen Negative Hep Bs Antibody Reactive Hep B Core Total Ab Positive H Hep B Core IgM Ab Negative Hepatitis Be Antibody Negative Hepatitis Be Antigen Negative HOSPITAL COURSE: Date of Admission:12/31/18 Date of Discharge: 01/03/19 Minutes to complete discharge: 35 Discharge Summary Reason For Visit: EPIGASTRIC PAIN Current Active Problems Epigastric pain (Acute) Fatty liver (Acute) H/O parathyroidectomy (Acute) HLD (hyperlipidemia) (Acute) Prophylactic measure (Acute) Vasovagal episode (Acute) Vomiting (Acute) Condition: Stable - Instructions Referrals: Flo Prince DO [Staff Physician] - Disposition: HOME - Home Medications Comprehensive Discharge Medication List: Ambulatory Orders Rosuvastatin [Crestor] 10 mg PO HS 07/30/11 Aspirin [ASA -] 81 mg PO ASDIR 11/24/14 Enalapril Maleate [Vasotec -] 20 mg PO DAILY 11/24/14 Brimonidine Tartrate/Timolol [Combigan 0.2%-0.5% Eye Drops] 1 drop OP OS BID bottle 07/05/16 Metoprolol Succinate [Toprol Xl] 100 mg PO HS 05/22/17 Amlodipine Besylate [Norvasc -] 2.5 mg PO DAILY 12/31/18 Hydrochlorothiazide [Hctz -] 12.5 mg PO DAILY 12/31/18 Problem List - Problems (1) Epigastric pain Code(s): R10.13 - EPIGASTRIC PAIN (2) Vasovagal episode Code(s): R55 - SYNCOPE AND COLLAPSE (3) HLD (hyperlipidemia) Code(s): E78.5 - HYPERLIPIDEMIA, UNSPECIFIED (4) H/O parathyroidectomy Code(s): Z90.09 - ACQUIRED ABSENCE OF OTHER PART OF HEAD AND NECK (5) Prophylactic measure Code(s): Z29.9 - ENCOUNTER FOR PROPHYLACTIC MEASURES, UNSPECIFIED (6) Hypertension Code(s): I10 - ESSENTIAL (PRIMARY) HYPERTENSION Qualifiers: Hypertension type: essential hypertension Qualified Code(s): I10 - Essential (primary) hypertension (7) Fatty liver Code(s): K76.0 - FATTY (CHANGE OF) LIVER, NOT ELSEWHERE CLASSIFIED - Discharge Referral Referred to [facility] No
[2019-01-03 08:56] VITALS: BP 152/75; PULSE 88; TEMP 98.4
--- NOTE | 2019-01-04 09:46 | HOL ---
Hook-up date: 2019-01-02 10:12:00 Duration: 22:41:00 Test Indications: SYNCOPAL EPISODE WITH COLLAPSE Medications: 16995 QRS complexes 54 Ventricular ectopics which represent <1 % of total QRS comp. 92 Supraventricular ectopics which represent <1 % of total QRS comp. * Paced QRS complexs which represent % of total QRS comp. 4 % of Time Classified as Noise VENTRICULAR ECTOPY 54 Isolated 3 Bigeminal Cycles 0 Couplets 0 Runs 0 Beats in Runs * Beats LONGEST at * BPM at :: -- * Beats FASTEST at * BPM at :: -- SUPRAVENTRICULAR ECTOPY 65 Isolated 9 Couplets 3 Runs 9 Beats in Runs 3 Beats LONGEST at 119 BPM at 12:21:23 2019-01-02 3 Beats FASTEST at 159 BPM at 02:57:10 2019-01-03 HEART RATES 55 MIN at 11:23:15 2019-01-02 76 AVG 107 MAX at 08:19:15 2019-01-03 LONGEST RR 1.688 secs at 21:35:40 2019-01-02 SCANNED BY: DANIELLA 01/03/19 1. Baseline sinus rhythm with avg hr 76 and range 55-107. 2. No significant bradycardia/pauses. 3. Rare PVCs and PACs. Three brief atrial runs (longest 3 beats). 4. No vt, vf, afib, aflutter. 5. No diary submitted. Confirmed by LEONEL WIGGINS, JORDANA ([id number]) on 01/04/2019 9:45:23 AM Referred By: Donna HOOKS Overread By: JORDANA CASTANEDA MD
== END 2019-01-03 09:00 | disposition home or self-care (01) | DRG 392 ==
LOC: FER 09:27 → J4W 20:20
PROVIDERS: ADMIT Internal Medicine; ATTEND Nurse Practitioner Acute Care
DX: K22.4 Dyskinesia of esophagus (principal); R10.13 Epigastric pain; E78.5 Hyperlipidemia, unspecified; I10 Essential (primary) hypertension; R00.1 Bradycardia, unspecified; R55 Syncope and collapse; K76.0 Fatty (change of) liver, not elsewhere classified; H40.9 Unspecified glaucoma; I34.0 Nonrheumatic mitral (valve) insufficiency; K21.9 Gastro-esophageal reflux disease without esophagitis; I36.1 Nonrheumatic tricuspid (valve) insufficiency
CPT/HCPCS: 36415; 71046-TC-FY; 74240-TC-FY; 76705-TC; 80053; 82550; 83690; 83735; 84100; 84484; 85025; 85610; 86704; 86706; 86707; 86708; 86709; 86803; 87340; 93005; 93225; 93226; 93306-TC; 99285-25

== ENCOUNTER 2019-03-24 09:50 | Day surgery (SDC) | payer OTHER, BC ==
[2019-03-24 11:08] VITALS: TEMP 98
[2019-03-24 11:36] VITALS: PULSE 59
[2019-03-24 13:40] VITALS: BP 139/60
== END 2019-03-24 12:00 | disposition home or self-care (01) ==
LOC: JASU-ENDO 09:50
PROVIDERS: ATTEND Internal Medicine Gastroenterology
PROC: 0DJD8ZZ Inspection of Lower Intestinal Tract, Via Natural or Artificial Opening Endoscopic (ICD-10-PCS; principal; 2019-03-24 11:00)
DX: Z12.11 Encounter for screening for malignant neoplasm of colon (principal); K64.8 Other hemorrhoids; Z80.0 Family history of malignant neoplasm of digestive organs; I10 Essential (primary) hypertension